=== PATIENT | male | born 1965 | race Caucasian/White ===

== ENCOUNTER 2017-02-14 12:55 | Emergency (ER) | payer OTHER ==
--- NOTE | ~2017-02-14 | CR109 ---
[facility] A Service of [facility] & [facility] RADIOLOGY TEXT RESULTS PATIENT: EDIN CHAVES LOCATION: SED : 65 UNIT #: [id number] AGE: [address]: Mirella Trinidad APRN SEX: M ORDER DR: [id number] [address] [address] [id number] E MR#: [id number] Acc #: [id number] NAME: EDIN CHAVES : 1965 SEX: M STUDY DATE/TIME: 02/14/2017 12:41 UNIT: SED ROOM: STUDY DESCRIPTION: CR Finger 2 View 2nd Rt Attending Physician: Mirella Trinidad A.P.R.N. Referring Physician: Mirella Trinidad A.P.R.N. Ordering Physician: Mirella Deleon A.P.R.N. Primary Care Physician: Yevgeniy Jj M.D. MEDICAL IMAGING REPORT This report is preliminary unless electronic signature is present. EXAM Right second finger, 02/14/2017, 1241 hours. CLINICAL HISTORY 51-year-old man who smashed finger tip while working on a car today. Bleeding and pain at distal tip of index finger. COMPARISON None FINDINGS AP, lateral, and oblique views demonstrate soft tissue swelling of the distal index finger. There is a comminuted, displaced fracture of the distal third of the index finger with displacement of a large fragment of the tuft in the radial direction. There is slight displacement of the same fragment in the palmar direction. There is no extension into the DIP joint. No foreign body. IMPRESSION Mildly comminuted and mildly displaced fracture of the distal third of the distal phalanx of the index finger involving much of the tuft. There is no extension into the DIP joint. Dictated by... Kylah Castelan M.D. THIS IS AN ELECTRONICALLY VERIFIED REPORT Kylah Castelan M.D. at 02/14/2017 2:30 PM BOO/[facility] ST[facility]. [facility] A Service of [facility] & [facility] RADIOLOGY TEXT RESULTS PATIENT: EDIN CHAVES LOCATION: SED : 65 UNIT #: [id number] AGE: [address]: Mirella Trinidad APRN SEX: M ORDER DR: TD: 02/14/2017 14:09 JOB #: [id number] MEDICAL IMAGING REPORT Page 1 of 1
[~2017-02-14 12:55] MED LIST: ACCUCHECK; ACEPHEN650 MG RC; ALPRAZOLAM; ALPRAZOLAM ODT1 MG PO; ALPRAZOLAM PO; AMARYL PO; AMBIEN CR; AMITRYPTYLINE PO; ASPIRIN; AVADART PO; AVODART0.5 MG PO; BACLOFEN10 MG PO; COLACE PO; DILAUDID PAIN PUMP; FENTANYL; FENTANYL 2 MCG; FENTANYL PUMP; FISH OIL 1,0001 CAP PO; FLAX SEED OIL1000 M1; FLAX SEED OIL1000 MG PO; GLUCOPHAGE XR500 MG PO; GLUCOTROL PO; GLUCOTROL XL PO; HUMULIN 70/30 V10 ML; INVOKANA300 MG PO; KCL PO; LANSOPRAZOLE30 M3 PO; LASIX80 MG PO; LIPITOR; LIPITOR PO; LISINOPRIL PO; LISINOPRIL10 MG PO; LOMOTIL TABLET1 TAB PO; LOVAZA1 G PO; LOVAZA1 GM PO; LYRICA PO; METFORMIN HCL1000 M1 PO; METFORMIN PO; NEURONTIN; NEURONTIN PO; NIASPAN; NIASPAN PO; NORVASC; NORVASC PO; NOVOLOG7030 SUBQ; OXYCONTIN; PERCOCET10 PO; PHENERGAN; PHENERGAN PO; PHENERGAN25 M1 PO; POTASSIUM CHLO10 MEQ PO; PREVACID; PREVACID PO; PROCTOCREAM-HC30 GM PR; REGLAN10 MG PO; REGLAN5 MG PO; SERTRALINE HCL100 M1 PO; STADOL; STADOL IV; TEMAZEPAM PO; TOPROL XL; TOPROL XL PO; TRILIPIX135 MG PO; VITAMIN D2400 UNIT PO; ZOLOFT PO; ZOMIG ZMT5 MG/TAB; ZOMIG5 MG PO; ZOMIG5 MG/SPRAY
[2017-05-06] MEDS ORDERED: TOUJEO SOL300 UNIT/1 SUBQ (10:40)
[2017-05-06] MEDS ORDERED: ACTOS30 MG PO (10:41)
[2017-05-06] MEDS ORDERED: JANUVIA100 MG PO (10:41)
[2017-05-06] MEDS ORDERED: COZAAR25 MG PO (10:41)
[2017-05-06] MEDS ORDERED: TOPROL XL100 MG PO (10:41)
== END 2017-02-14 14:10 ==
LOC: SED 12:55
DX: S62.630B Displaced fracture of distal phalanx of right index finger, initial encounter for open fracture (principal); Z23 Encounter for immunization; E11.9 Type 2 diabetes mellitus without complications; I50.9 Heart failure, unspecified; F17.210 Nicotine dependence, cigarettes, uncomplicated; W23.0XXA Caught, crushed, jammed, or pinched between moving objects, initial encounter; Y93.89 Activity, other specified; Y92.69 Other specified industrial and construction area as the place of occurrence of the external cause; Y99.0 Civilian activity done for income or pay
CPT/HCPCS: 29130; 73140; 90471; 90715; 96372; 96374; 99285; J0690

== ENCOUNTER → 2017-05-15 | Day surgery (SDC) | payer OTHER ==
[~2017-05-15] MED LIST changes: +ACTOS30 MG PO; +COZAAR25 MG PO; +JANUVIA100 MG PO; +TOPROL XL100 MG PO; +TOUJEO SOL300 UNIT/1 SUBQ
--- NOTE | ~2017-05-15 | OR ---
Unit #: [id number] #: [id number] Patient: EDIN CHAVES [id number] [address] [place], [place] [address] [id number] O MR#: [id number] NAME: EDIN CHAVES ROOM: Date of Procedure: 05/15/2017 Admission Date: 05/15/2017 Surgeon: Matthew Torres M.D. : 1965 Attending Physician: Matthew Torres M.D. Primary Care Physician: Yevgeniy Jj M.D. OPERATIVE REPORT PREOPERATIVE DIAGNOSES 1. Dysphagia. 2. Screening colonoscopy. POSTOPERATIVE DIAGNOSES 1. Dysphagia. 2. Screening colonoscopy. PROCEDURES PERFORMED 1. Esophagogastroduodenoscopy. 2. Biopsy of antrum for Helicobacter pylori testing. 3. Colonoscopy to cecum. 4. Polypectomy with electrocautery snare at 15 cm. ANESTHESIA Monitored anesthesia care. FINDINGS The patient was found on upper endoscopy to have moderate gastritis. On colonoscopy, the patient had an occasional rare sigmoid diverticulum, mild internal hemorrhoids, and a 5 mm polyp was excised at 15 cm with electrocautery snare with good hemostasis. SPECIMENS Sent to pathology. COMPLICATIONS None apparent. CONDITION The patient tolerated the procedure well. INDICATIONS FOR PROCEDURE The patient is a 51-year-old white male, who presents at this time with complaint of dysphagia that is intermittent. It is present with solids and liquids. The patient has not had a screening colonoscopy for over a years. He presents at this time for upper and lower endoscopy. DESCRIPTION OF PROCEDURE After obtaining informed consent, the patient was brought to the endoscopy suite and after adequate monitored anesthesia care, had the endoscope placed through the mouth into the upper esophagus under direct vision. It Unit #: [id number] #: [id number] Patient: EDIN CHAVES was slowly advanced with the lumen always in view to the second and third portion of the duodenum. The duodenum was normal as was the duodenal bulb. The pylorus opened normally. There was moderate distal gastritis present and a biopsy was obtained for Helicobacter pylori testing. On retroflexion back to the GE junction, there was no hiatal hernia seen. There was no abnormality seen in the proximal third, middle third, or incisura. On pulling back above the GE junction, there was no stenosis, stricture, or neoplasm seen and no significant esophagitis. The remaining portion of the esophagus was within normal limits. Laryngeal structures were grossly normal as viewed from above. At this point in time, the colonoscope was placed through the anus and slowly advanced to the level of the cecum without difficulty with the lumen always in view. The cecum was normal as was the ileocecal valve. The ascending colon was normal as was the hepatic flexure, transverse colon, splenic flexure, and descending colon. In the sigmoid colon, there was an occasional diverticulum seen. The remaining portion of the sigmoid colon and upper rectum was normal. At 15 cm, a small polyp was found. It was approximately 5 mm in size. It was excised completely with electrocautery snare with good hemostasis, retrieved with a mucus trap and sent to pathology. There was good hemostasis. On retroflexing in the rectum to the anorectal junction, there was some mild to moderate internal hemorrhoids seen. The scope was removed without difficulty. On digital examination, there was good sphincter tone, no masses palpable. The patient went from the operating room to recovery room in stable condition. RECOMMENDATIONS Gastroesophageal reflux sheet given. High-fiber diet, lots of liquids, tucks or wipes p.r.n. Call Friday for pathology. Dictated by... Prisca Trammell/nancy TD: 05/15/2017 16:18 JOB #: [id number] Psychiatric OPERATIVE REPORT Page 1 of 1 X Matthew Torres MD X PROCEDURE OPERATIVE NOTE
== END | disposition home or self-care (01) ==
LOC: COPS 11:51
DX: Z12.11 Encounter for screening for malignant neoplasm of colon (principal); K63.5 Polyp of colon; R13.10 Dysphagia, unspecified; K29.70 Gastritis, unspecified, without bleeding; K64.8 Other hemorrhoids; K21.9 Gastro-esophageal reflux disease without esophagitis; E11.9 Type 2 diabetes mellitus without complications; Z79.84 Long term (current) use of oral hypoglycemic drugs; M19.90 Unspecified osteoarthritis, unspecified site; J30.9 Allergic rhinitis, unspecified; F17.200 Nicotine dependence, unspecified, uncomplicated
CPT/HCPCS: 82947; 87077; 88305